=== PATIENT | male | born 1945 | race Caucasian/White ===

== ENCOUNTER 2021-09-24 17:44 | Inpatient (IN) ==
[2021-09-24] MEDS ORDERED: 0.9 % SODIUM CHLORIDE 1,000 ML IV ONE (18:45)
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
[2021-09-24 20:08] LABS: Basophils # (Auto) 0.02 K/mcL (0.00-0.30); Basophils % (Auto) 0.2 % (0.0-2.0); Eosinophils # (Auto) 0 K/mcL (0.00-0.70); Eosinophils % (Auto) 0 % (0.0-7.0); Hematocrit 53.8 % (40.1-51.0); Hemoglobin 18.4 g/dL (13.7-17.5); Lymphocytes # (Auto) 0.75 K/mcL (1.50-4.80); Lymphocytes % (Auto) 8.4 % (15.5-49.0); Mean Cell Volume 92.3 fL (80.0-100.0); Mean Corpuscular HGB Conc 34.2 g/dL (31.0-36.0); Mean Platelet Volume 9.5 fL (7.4-10.4); Monocytes # (Auto) 1.16 K/mcL (0.10-0.90); Monocytes % (Auto) 13.1 % (1.0-12.0); Neutrophils % (Auto) 78.3 % (38.0-78.0); Platelet Count 144 K/mcL (140-440); RBC 5.83 M/mcL (4.63-6.08); Red Cell Distribution Width 12.7 % (11.5-14.5); WBC 8.9 K/mcL (4.5-11.0)
[2021-09-24 20:16] LABS: ALT/SGPT 28 U/L (<40); AST/SGOT 100 U/L (<40); Albumin 4.2 gm/dL (3.2-5.2); Albumin/Globulin Ratio 1.4 (1.0-2.3); Alkaline Phosphatase 86 U/L (39-117); Bilirubin,Total 1.1 mg/dL (0.1-1.0); Blood Urea Nitrogen 19 mg/dL (8-23); Calcium 9.1 mg/dL (8.6-10.4); Carbon Dioxide 26 mmol/L (22-30); Chloride 96 mmol/L (96-108); Glomerular Filtration Rate 57; Glucose 99 mg/dL (70-105)
[2021-09-24 20:38] LABS: Appearance,Urine Clear (Clear); Bilirubin,Urine Negative (Negative); Color,Urine Dark yellow; Culture Indicated,Urine No; Ketones,Urine 15 mg/dL mg/dL (Negative); Leukocyte Esterase,Urine Negative /uL (Negative); Mucus,Urine MOD /hpf; Nitrate,Urine Negative (Negative); Specific Gravity,Urine >= 1.030 (1.000-1.035); Urine Blood Moderate ery/mcL (Negative); Urine Hyaline Cast 72 /lph (0-2); Urine RBC 2 /hpf (0-3); Urine Squamous Epithelial Cell 0 /hpf (0-4); Urine WBC 5 /hpf (0-4); Urobilinogen,Urine Normal
[2021-09-24] MEDS ORDERED: ONDANSETRON 4 MG/2 ML VIAL IV PRN (21:48)
[2021-09-24] MEDS ORDERED: ACETAMINOPHEN 325 MG TABLET PO PRN (21:48)
[2021-09-24] MEDS ORDERED: IBUPROFEN 600 MG TABLET PO PRN (21:48)
[2021-09-24] MEDS: 0.9 % SODIUM CHLORIDE 10 ML SYRINGE IV SCH (23:30)
[2021-09-25] MEDS: 0.9 % SODIUM CHLORIDE 10 ML SYRINGE IV SCH ×5 (05:24→20:15)
[2021-09-25 06:49] LABS: Basophils # (Auto) 0.05 K/mcL (0.00-0.30); Basophils % (Auto) 0.5 % (0.0-2.0); Eosinophils # (Auto) 0.08 K/mcL (0.00-0.70); Eosinophils % (Auto) 0.8 % (0.0-7.0); Hematocrit 59.7 % (40.1-51.0); Hemoglobin 19.2 g/dL (13.7-17.5); Lymphocytes # (Auto) 1.86 K/mcL (1.50-4.80); Mean Cell Volume 97.7 fL (80.0-100.0); Mean Corpuscular HGB Conc 32.2 g/dL (31.0-36.0); Mean Platelet Volume 9.7 fL (7.4-10.4); Monocytes # (Auto) 1.45 K/mcL (0.10-0.90); Monocytes % (Auto) 14.1 % (1.0-12.0); Neutrophils % (Auto) 66.6 % (38.0-78.0); Platelet Count 141 K/mcL (140-440); RBC 6.11 M/mcL (4.63-6.08); Red Cell Distribution Width 12.8 % (11.5-14.5); WBC 10.3 K/mcL (4.5-11.0)
[2021-09-25 07:22] LABS: Blood Urea Nitrogen 24 mg/dL (8-23); Calcium 8.5 mg/dL (8.6-10.4); Carbon Dioxide 22 mmol/L (22-30); Chloride 104 mmol/L (96-108); Glomerular Filtration Rate 64; Glucose 89 mg/dL (70-105)
--- NOTE | 2021-09-25 07:31 | EKG ---
[facility] Test Date: 2021-09-24 Pat Name: Sawyer Dutton Department: ED Room: Gender: Male Ginner Helper: latonya : 1945 Requested By: Ephraim Paez Order Number: [id number] Reading MD: Dane Mccoy M.D. Measurements Intervals Grandy Rate: 78 P: 46 IN: 184 QRS: -40 QRSD: 110 T: 45 QT: 370 QTc: 422 Interpretive Statements Sinus rhythm Left axis deviation No significant change compared to prior ECG. Electronically Signed On 09-25-2021 7:31:14 PST by Dane Mccoy M.D. /store/M0/[id number]
--- NOTE | 2021-09-25 07:38 | Internal Med History&Physical ---
HPI History of Present Illness Patient information: Note initiated : 09/25/21 at 7:32 am Service Date, if different from initiated Date: [] Patient: Sawyer Dutton 76 y/o M admitted on 09/24/21 for alter. mental/Fall. Chief Complaint: [] History of present illness: Mr. Dutton is a 76 year old M Who lives in [facility] and was brought in by neighbors after being found on the ground between bed and the wall. They usually check on him frequently because he seems to be in poor health. So this is the second day in a row the patient has fallen and seems a little confused. And the neighbors is the fourth time in a month that this is happened. Patient says that he is fallen several times the past month because he just been weak and tripped. But he says this last time was different where he says he does not remember falling and just remembers waking up, this happened in the middle night and he says he may have been getting up to go the bathroom. Work-up in the ER was unremarkable. Telemetry unremarkable. Patient has nobody bring him home and patient does not appear to be safe at home unable to care for himself. Likely will need placement. Chest x-ray was read as unremarkable. Patient does have a new cough which he states had for 3 to 4 weeks and is nonproductive. No shortness of breath. No chest pain nausea vomiting diarrhea or other pains or complaints, no myalgias. Review of Systems: Pertinent positives as above. Denies headache/fever/chills/nausea/vomiting/chest or abdominal pain/dyspnea/diarrhea. Remaining 10 point review of system reviewed negative. PFSH PFSH All Active Problems (Updated 09/24/21 @ 22:04 by Ephraim Paez DO) Esophageal obstruction due to food impaction (Acute) Syncopal episodes (Acute) Difficulty swallowing (Acute) Benign paroxysmal positional vertigo (Acute) BPH associated with nocturia (Acute) Annual physical exam (Acute) Medicare annual wellness visit, subsequent (Acute) Bee sting reaction (Acute) Cellulitis (Acute) Prediabetes (Acute) Ankle sprain and strain (Acute) Hypokalemia (Chronic) Vitamin D deficiency, unspecified (Chronic) Chronic kidney disease, stage 3 (moderate) (Chronic) Obstructive sleep apnea (Chronic) Hypertension, essential (Chronic) Hyperlipidemia (Chronic) Benign localized prostatic hyperplasia without lower urinary tract symptoms (LUTS) (Chronic) Medical History Ankle sprain and strain Annual physical exam Benign localized prostatic hyperplasia without lower urinary tract symptoms (LUTS) BPH associated with nocturia Chronic kidney disease, stage 3 (moderate) Depressive disorder Hyperlipidemia Hypertension, essential Hypokalemia Medicare annual wellness visit, subsequent Obstructive sleep apnea Sebaceous cyst (01/14/12) Mid Back Type 2 diabetes mellitus without complication Vitamin D deficiency, unspecified Surgical History History of blepharoplasty Bilateral History of colonoscopy (12/20/09) History of eye surgery R cornea/scar Status post cataract extraction and insertion of intraocular lens Bilateral Subcutaneous mass -Excision of low back sebaceous cyst with Dr Plascencia at [facility] Family History Father , at 71 Alcohol abuse Chronic obstructive pulmonary disease Congestive heart failure Mother , at 72 Malignant neoplasm Not sure of type Unknown Cerebrovascular accident Social History marital status: education level: high school occupational status: retired occupation: [employer] other: 2 Children, 2 Grandchildren alcohol intake frequency: holiday/special occasion only MEDS/ALLERGIES Home Medications and Allergies Home Medications Medication Instructions Recorded Confirmed Type meclizine 25 mg tablet 25 mg PO TID PRN #10 tab 08/27/21 09/18/21 Rx Allergies Allergy/AdvReac Type Severity Reaction Status Date / Time No Known Drug Allergies Allergy Verified 09/24/21 17:50 EXAM Constitutional Vitals: Temp Pulse Resp BP Pulse Ox 98.4 F 71 18 126/75 89 L 09/25/21 04:01 09/25/21 04:01 09/25/21 04:01 09/25/21 04:01 09/25/21 04:01 Exam: General: Alert, Awake, No acute Distress Eyes/N/T: EOMI, PERRL, dry MM Head/Neck: neck supple, normocephalic atraumatic CV: RRR, No murmurs, normal s1/s2 Pulm: mild rhonchi on right, mild wheezing on left Abd: soft, nontender, +BS x4 Ext: no clubbing/cyanosis/edema Neuro: Alert, no focal deficits, moves all extremities, CN 2-12 grossly intact, symmetrical strength b/l upper/lower, sensations intact b/l upper/lower Skin: warm/dry DATA Data Completed and Pending Labs: Labs from last 24 hours 09/25/21 09/25/21 09/24/21 05:49 05:49 19:49 WBC 10.3 RBC 6.11 H Hgb 19.2 H Hct 59.7 H MCV 97.7 MCH 31.4 MCHC 32.2 RDW 12.8 Plt Count 141 MPV 9.7 Neut % (Auto) 66.6 Lymph % (Auto) 18.0 Morton % (Auto) 14.1 H Eos % (Auto) 0.8 Baso % (Auto) 0.5 Lymph # (Auto) 1.86 Morton # (Auto) 1.45 H Eos # (Auto) 0.08 Baso # (Auto) 0.05 Absolute Neutrophils 6.87 Sodium 141 Potassium 4.2 Chloride 104 Carbon Dioxide 22 Anion Gap 15.0 BUN 24 H Creatinine 1.1 GFR Calculation 64 Glucose 89 Calcium 8.5 L Total Bilirubin AST ALT Alkaline Phosphatase Troponin T Total Protein Albumin Globulin Albumin/Globulin Ratio Urine Color Dark yellow Urine Appearance Clear Urine pH 5.0 Ur Specific [place] >= 1.030 Urine Protein 100 mg/dl A Urine Glucose (UA) 100 mg/dl A Urine Ketones 15 mg/dl A Urine Occult Blood Moderate A Urine Nitrate Negative Urine Bilirubin Negative Urine Urobilinogen Normal Ur Leukocyte Esterase Negative Urine RBC 2 Urine WBC 5 H Ur Squamous Epith Cells 0 Urine Bacteria None Hyaline Casts 72 H Urine Mucus Mod A Ur Culture Indicated? No 09/24/21 09/24/21 09/24/21 19:13 19:13 19:13 WBC 8.9 RBC 5.83 Hgb 18.4 H Hct 53.8 H MCV 92.3 MCH 31.6 MCHC 34.2 RDW 12.7 Plt Count 144 MPV 9.5 Neut % (Auto) 78.3 H Lymph % (Auto) 8.4 L Morton % (Auto) 13.1 H Eos % (Auto) 0 Baso % (Auto) 0.2 Lymph # (Auto) 0.75 L Morton # (Auto) 1.16 H Eos # (Auto) 0 Baso # (Auto) 0.02 Absolute Neutrophils 6.95 Sodium 136 Potassium 3.9 Chloride 96 Carbon Dioxide 26 Anion Gap 14.0 BUN 19 Creatinine 1.2 GFR Calculation 57 Glucose 99 Calcium 9.1 Total Bilirubin 1.1 H AST 100 H ALT 28 Alkaline Phosphatase 86 Troponin T 0.02 Total Protein 7.2 Albumin 4.2 Globulin 3.0 Albumin/Globulin Ratio 1.4 Urine Color Urine Appearance Urine pH Ur Specific [place] Urine Protein Urine Glucose (UA) Urine Ketones Urine Occult Blood Urine Nitrate Urine Bilirubin Urine Urobilinogen Ur Leukocyte Esterase Urine RBC Urine WBC Ur Squamous Epith Cells Urine Bacteria Hyaline Casts Urine Mucus Ur Culture Indicated? A/P Narrative A/P Narrative: A: *Generalized weakness/deconditioning/falling: *Syncope: likely orthostatic vs vasovagal. happened in middle of night, possibly while getting up to go to the bathroom *Volume depletion: *URI: *Hypoxia while sleeping P: -IVF -pt/ot -CM for placement -check orthostatic vs -check pct,crp, rvp -tele monitoring -Referral to pulmonology for sleep study -ppx: lovenox full code Time Spent With Patient Time: Total time spent is greater than 50% in coordination of care (as documented) at patient's floor/unit and/or counseling patient: QUALITY VTE Deep Vein Thrombosis/Pulmonary Embolism Present on Admission: No
[2021-09-25] MEDS: 0.9 % SODIUM CHLORIDE 1,000 ML IV SCH ×3 (07:39→21:54)
[2021-09-25 08:10] LABS: Phosphorous 3.5 mg/dL (2.5-4.5); Uric Acid 10.1 mg/dL (2.5-8.0)
--- NOTE | 2021-09-25 08:11 | Cat Scan Report ---
History: Fell, head injury, altered mental status TECHNIQUE: The brain was imaged without contrast in axial plane at 2.5 mm intervals. The radiation exposure was limited using dose reduction technology. FINDINGS: The bone windows show no skull fracture. There is no intracranial hemorrhage, cerebral edema or mass effect. Age-related degenerative changes are present. There is mild generalized cerebral atrophy. Patchy areas of decreased attenuation are seen in the centrum semiovale in the frontal and parietal lobes. There is no abnormal extra-axial fluid collection. The ventricles are normal in size. No abnormalities seen within the orbits or visualized sinuses. IMPRESSION: Age-related degenerative changes No evidence of acute head injury Interpreted and Authenticated by: Ricci Mccoy 09/25/21
--- NOTE | 2021-09-25 08:15 | XRay Report ---
HISTORY: Fell, altered mental status FINDINGS: Portable semierect AP image was obtained. There is a small streaky opacity adjacent to the cardiac apex and above the left diaphragm. This is a chronic finding which could be scar. No acute infiltrate or mass are present. There is no pneumothorax or pleural effusion. The heart size is normal. No congestive heart failure is present. The right lower hilum appears enlarged. This is probably a vessel, but there are could be an underlying enlarged lymph node. IMPRESSION: No acute chest injury Interpreted and Authenticated by: Ricci Mccoy 09/25/21
[2021-09-25] MEDS ORDERED: ONDANSETRON 4 MG/2 ML VIAL IV PRN (08:48)
[2021-09-25] MEDS ORDERED: POTASSIUM CHLORIDE 20 MEQ TABLET PO PRN ×2 (08:48)
[2021-09-25] MEDS ORDERED: POLYETHYLENE GLYCOL 3350 17 GM PACKET PO PRN (08:48)
[2021-09-25] MEDS ORDERED: IPRATROPIUM/ALBUTEROL 3 ML AMPUL.NEB NEB PRN (08:48)
[2021-09-25] MEDS ORDERED: SENNOSIDES 1 TABLET PO PRN (08:48)
[2021-09-25] MEDS ORDERED: MAGNESIUM SULFATE 2 GM/50 ML BAG IV PRN (08:48)
[2021-09-25] MEDS ORDERED: POTASSIUM CHLORIDE 40 MEQ in DEXTROSE 5% IN WATER 500 ML IV PRN (08:48)
[2021-09-25] MEDS ORDERED: IPRATROPIUM/ALBUTEROL 3 ML AMPUL.NEB NEB ONE (08:49)
[2021-09-25] MEDS ORDERED: ENOXAPARIN 40 MG/0.4 ML SYRINGE SQ SCH (09:00)
[2021-09-25] MEDS ORDERED: IOPAMIDOL 100 ML BOTTLE IV ONE (10:38)
[2021-09-25] MEDS ORDERED: ENOXAPARIN 60 MG/0.6 ML SYRINGE SQ ONE (10:54)
--- NOTE | 2021-09-25 10:59 | Cat Scan Report ---
History: Hypoxia TECHNIQUE: Following injection of intravenous nonionic contrast, the chest was scanned during the pulmonary arterial phase. Sagittal, coronal and axial MIPS images were created. The radiation exposure was limited using dose reduction technology. FINDINGS: In the periphery of the posterior basal segment right lower lobe there are two small nonocclusive clots in peripheral third order arteries. The remainder the pulmonary arteries in both lungs are clear. There is no central pulmonary embolus. There are bands of discoid atelectasis in both lower lobes. There is no evidence of pneumonia or lung mass. Solitary bulla is present in the right upper lobe. There is no other evidence of COPD. No pleural effusion is present. There is no adenopathy. In the right lower hilum, the right lower lobe pulmonary artery is relatively prominent, which correlates with the findings on the preceding chest x-ray. There is no clot in this region and no hilar adenopathy. The heart is normal in size and contour. There is moderate amount of calcified plaque in the left anterior descending coronary with milder involvement in the circumflex and right coronary. Bone windows show no fracture. There is arthritis throughout the cervical mid and upper thoracic spine. Impression: Two tiny peripheral emboli in the posterior basal segment of the right lower lobe with associated discoid atelectasis Dr. Alvarado was called with the report Interpreted and Authenticated by: Ricci Mccoy 09/25/21
[2021-09-25] MEDS ORDERED: AZITHROMYCIN 500 MG in DEXTROSE 5% IN WATER 250 ML IV ONE (11:00)
[2021-09-25 12:33] LABS: Band Neutrophils % 1 % (0-10); Eosinophils % (Manual) 2 % (0-7); Lymphocytes % 20 % (15-49); Monocytes % (Manual) 11 % (1-12); Platelet Estimate NORMAL (Normal); RBC Morphology NORMAL (Normal); Reactive Lymphocytes 4 % (0-2); Segmented Neutrophils % 62 % (38-78)
[2021-09-25] MEDS: cefTRIAXone 2 GM in DEXTROSE 5% IN WATER 50 ML IV SCH (13:31)
[2021-09-25] MEDS ORDERED: ENOXAPARIN 100 MG/ML SYRINGE SQ SCH (21:00)
[2021-09-26] MEDS: 0.9 % SODIUM CHLORIDE 10 ML SYRINGE IV SCH ×3 (05:42→20:00)
--- NOTE | 2021-09-26 07:17 | Internal Med Progress Note ---
SUBJECTIVE Subjective Patient information: Note initiated : 09/26/21 at 7:13 am Service Date, if different from initiated Date: [] Patient: Sawyer Dutton 76 y/o M admitted on 09/24/21 for alter. mental/Fall. Chief Complaint: [] Interval history: History of present illness: Mr. Dutton is a 76 year old M Who lives in [facility] and was brought in by neighbors after being found on the ground between bed and the wall. They usually check on him frequently because he seems to be in poor health. So this is the second day in a row the patient has fallen and seems a little confused. And the neighbors is the fourth time in a month that this is happened. Patient says that he is fallen several times the past month because he just been weak and tripped. But he says this last time was different where he says he does not remember falling and just remembers waking up, this happened in the middle night and he says he may have been getti ng up to go the bathroom. Work-up in the ER was unremarkable. Telemetry unremarkable. Patient has nobody bring him home and patient does not appear to be safe at home unable to care for himself. Likely will need placement. Chest x-ray was read as unremarkable. Patient does have a new cough which he states had for 3 to 4 weeks and is nonproductive. No shortness of breath. No chest pain nausea vomiting diarrhea or other pains or complaints, no myalgias. RVP withRSV B (+) 1/4 Patient states he feels like he is getting better. Has a cough that bothers him significantly. States is mostly dry. Does have a lot of sinus congestion. Afebrile. Review of Systems: denies headache/fever/chills/nausea/vomiting/chest or abdominal pain/diarrhea. Otherwise see above. Constitutional Vitals: Vital Signs Temp Pulse Resp BP Pulse Ox 97.8 F 77 24 H 132/75 97 09/26/21 03:19 09/25/21 15:34 09/26/21 03:19 09/26/21 03:19 09/26/21 03:19 Period Temp Pulse Resp BP Sys/Santos Pulse Ox Last 24 Hr 97 F-98.2 F 64-77 16-24 98-147/64-83 86-97 Intake and Output 09/25/21 09/26/21 09/26/21 21:59 05:59 13:59 Intake Total 1780 Output Total 250 200 Balance 1530 -200 Weight 106.912 kg Intake & Output: Intake & Output 09/25/21 09/26/21 09/26/21 21:59 05:59 13:59 Intake Total 1780 Output Total 250 200 Balance 1530 -200 Weight 106.912 kg Intake: IV 1300 Sodium Chloride 0.9% 1,000 ml @ 1000 125 mls/hr IV .Q8H [facility] Rx#: [id number] Zithromax 500 mg In Dextrose 5% 250 in Water 250 ml @ 250 mls/hr IV ONCE ONE Rx#:[id number] Rocephin 2 gm In Dextrose 5% in 50 Water 50 ml @ 100 mls/hr IV DAILY [facility] Rx#:[id number] Oral 480 Output: Void Amount 250 200 Other: Urine Appearance Clear Clear Urine Color Dark Yellow Dark Yellow Urine Odor Normal Stool Size Moderate Stool Color Brown # Bowel Movements 1 Exam: General: Alert, Awake, No acute Distress Eyes/N/T: EOMI, Head/Neck: neck supple, CV: RRR, No murmurs, 2 Pulm: mild rhonchi on right, mild wheezing on left Abd: soft, nontender, +BS x4 Ext: no clubbing/cyanosis/edema Neuro: Alert, no focal deficits, moves all extremities, Skin: warm/dry OBJ DATA Labs CBC & Chem 7: 09/26/21 06:04 09/26/21 06:04 Labs: Abnormal Lab Results 09/25/21 09/25/21 09/25/21 05:49 05:49 05:49 RBC Hgb Hct Neut % (Auto) Lymph % (Auto) [place] % (Auto) Lymph # (Auto) [place] # (Auto) Reactive Lymphocytes 4 H BUN Uric Acid Calcium Total Bilirubin AST C-Reactive Protein 5.50 H Procalcitonin 1.26 H Urine Protein Urine Glucose (UA) Urine Ketones Urine Occult Blood Urine WBC Hyaline Casts Urine Mucus 09/25/21 09/25/21 09/25/21 05:49 05:49 05:49 RBC 6.11 H Hgb 19.2 H Hct 59.7 H Neut % (Auto) Lymph % (Auto) [place] % (Auto) 14.1 H Lymph # (Auto) [place] # (Auto) 1.45 H Reactive Lymphocytes BUN 24 H Uric Acid 10.1 H Calcium 8.5 L Total Bilirubin AST C-Reactive Protein Procalcitonin Urine Protein Urine Glucose (UA) Urine Ketones Urine Occult Blood Urine WBC Hyaline Casts Urine Mucus 09/24/21 09/24/21 09/24/21 19:49 19:13 19:13 RBC Hgb 18.4 H Hct 53.8 H Neut % (Auto) 78.3 H Lymph % (Auto) 8.4 L [place] % (Auto) 13.1 H Lymph # (Auto) 0.75 L [place] # (Auto) 1.16 H Reactive Lymphocytes BUN Uric Acid Calcium Total Bilirubin 1.1 H AST 100 H C-Reactive Protein Procalcitonin Urine Protein 100 mg/dl A Urine Glucose (UA) 100 mg/dl A Urine Ketones 15 mg/dl A Urine Occult Blood Moderate A Urine WBC 5 H Hyaline Casts 72 H Urine Mucus Mod A Meds: Medications Acetaminophen (Acetaminophen 325 Mg Tablet) 650 mg PO Q6HP PRN; Protocol PRN Reason: Per Pain Protocol/Fever > 101 Albuterol/Ipratropium (Ipratropium/Albuterol 3 Ml Ampul.Neb) 3 ml NEB Q4HP PRN PRN Reason: Shortness Of Breath Enoxaparin Sodium (Enoxaparin 100 Mg/Ml Syringe) 100 mg SQ BID [facility] Last Admin: 09/25/21 20:15 Dose: 100 mg Documented by: Potassium Chloride 40 meq/ (Dextrose) 520 mls @ 130 mls/hr IV UD PRN PRN Reason: Potassium < 3 Magnesium Sulfate (Magnesium Sulfate) 2 gm in 50 mls @ 50 mls/hr IV UD PRN PRN Reason: Magnesium </= 1.6 Ceftriaxone Sodium 2 gm/ (Dextrose) 50 mls @ 100 mls/hr IV DAILY [facility]; Protocol Last Infusion: 09/25/21 14:09 Dose: Infused Documented by: Azithromycin 250 mg/ Dextrose 250 mls @ 250 mls/hr IV DAILY@1100 [facility]; Protocol Stop: 09/29/21 11:59 Ibuprofen (Ibuprofen 600 Mg Tablet) 600 mg PO QIDP PRN; Protocol PRN Reason: Per Pain Protocol/Fever > 101 Ondansetron HCl (Ondansetron 4 Mg/2 Ml Vial) 4 mg IV Q6HP PRN PRN Reason: Nausea And Vomiting Ondansetron HCl (Ondansetron 4 Mg/2 Ml Vial) 4 mg IV Q4HP PRN PRN Reason: Nausea And Vomiting Polyethylene Glycol (Polyethylene Glycol 3350 17 Gm Packet) 17 gm PO DAILYP PRN PRN Reason: Constipation Potassium Chloride (Potassium Chloride 20 Meq Tablet) 40 meq PO UD PRN PRN Reason: Potssium is 3-3.5 Potassium Chloride (Potassium Chloride 20 Meq Tablet) 40 meq PO UD PRN PRN Reason: Potassium < 3 Senna (Sennosides 1 Tablet) 2 tab PO DAILYP PRN PRN Reason: Constipation Sodium Chloride (0.9 % Sodium Chloride 10 Ml Syringe) 10 ml IV Q8 [facility] Last Admin: 09/26/21 05:42 Dose: Not Given Documented by: A/P Narrative A/P Narrative: A: *small RLL PE's: *RSV B Infection URI: *Acute hypoxic respiratory failure: 2/2 above -on 2-3L NC *Generalized weakness/deconditioning/falling: *Syncope: likely orthostatic vs vasovagal. happened in middle of night, possibly while getting up to go to the bathroom *Volume depletion: *URI: *Hypoxia while sleeping P: -lovenox bid to eliquis -IVF finish -d/c abx if no bacterial infection found, f/u pct -pt/ot -CM for placement -check orthostatic vs -tele monitoring -ambulation -ppx: eliquis full code Time Spent With Patient Time: Total time spent is greater than 50% in coordination of care (as documented) at patient's floor/unit and/or counseling patient: QUALITY VTE Deep Vein Thrombosis/Pulmonary Embolism Present on Admission: No
[2021-09-26] MEDS ORDERED: MECLIZINE 25 MG TABLET PO PRN (07:33)
[2021-09-26 07:48] LABS: Hematocrit 51.6 % (40.1-51.0); Hemoglobin 16.9 g/dL (13.7-17.5); Mean Cell Volume 95.6 fL (80.0-100.0); Mean Corpuscular HGB Conc 32.8 g/dL (31.0-36.0); Mean Platelet Volume 9.7 fL (7.4-10.4); Platelet Count 131 K/mcL (140-440); Red Cell Distribution Width 12.8 % (11.5-14.5); WBC 6.2 K/mcL (4.5-11.0)
[2021-09-26 08:19] LABS: ALT/SGPT 29 U/L (<40); AST/SGOT 81 U/L (<40); Albumin 3.7 gm/dL (3.2-5.2); Albumin/Globulin Ratio 1.4 (1.0-2.3); Alkaline Phosphatase 70 U/L (39-117); Bilirubin,Direct < 0.2 mg/dL (0-0.3); Bilirubin,Total 0.4 mg/dL (0.1-1.0); Blood Urea Nitrogen 23 mg/dL (8-23); Calcium 8.4 mg/dL (8.6-10.4); Carbon Dioxide 22 mmol/L (22-30); Chloride 104 mmol/L (96-108); Globulin 2.6 gm/dL (2.2-3.7); Glomerular Filtration Rate 64; Glucose 77 mg/dL (70-105); Lactate Dehydrogenase 316 U/L (135-225); Phosphorous 2.7 mg/dL (2.5-4.5); Triglycerides 165 mg/dL (<150); Uric Acid 8.7 mg/dL (2.5-8.0)
[2021-09-26] MEDS ORDERED: BENZONATATE 100 MG CAPSULE PO PRN (08:23)
[2021-09-26] MEDS: APIXABAN 5 MG TABLET PO SCH ×2 (08:36→19:39)
[2021-09-26] MEDS: guaiFENesin/CODEINE 10 ML UDC PO PRN ×2 (08:36→20:39)
[2021-09-26] MEDS: cefTRIAXone 2 GM in DEXTROSE 5% IN WATER 50 ML IV SCH (08:36)
[2021-09-26 09:12] LABS: Basophils % (Manual) 1 % (0-2); Eosinophils % (Manual) 2 % (0-7); Lymphocytes % 23 % (15-49); Monocytes % (Manual) 11 % (1-12); Platelet Estimate DECREASED (Normal); RBC Morphology NORMAL (Normal); Reactive Lymphocytes 2 % (0-2); Segmented Neutrophils % 61 % (38-78)
[2021-09-26] MEDS: AZITHROMYCIN 250 MG in DEXTROSE 5% IN WATER 250 ML IV SCH (10:42)
--- NOTE | 2021-09-26 13:38 | XRay Report ---
HISTORY: Right lower lobe pulmonary emboli, cough FINDINGS: There is a vague streakiness in the lung parenchyma adjacent to both diaphragms. This corresponds with bands of scar and atelectasis seen on the recent chest CT performed on 09/25/21. The right lower hilum still appears enlarged. This corresponds with a relatively large right lower lobe pulmonary artery. The descending aorta is tortuous. The mid and upper lung kenney are clear. No acute infiltrate has developed. There is no congestive heart failure or pleural effusion. The heart size is normal. IMPRESSION: Stable scar/atelectasis adjacent to both diaphragms Interpreted and Authenticated by: Ricci Mccoy 09/26/21
[2021-09-27] MEDS: 0.9 % SODIUM CHLORIDE 10 ML SYRINGE IV SCH ×2 (05:23→14:00)
--- NOTE | 2021-09-27 07:48 | Internal Med Progress Note ---
SUBJECTIVE Subjective Patient information: Note initiated : 09/27/21 at 7:44 am Service Date, if different from initiated Date: [] Patient: Sawyer Dutton 76 y/o M admitted on 09/24/21 for alter. mental/Fall. Chief Complaint: [] Interval history: History of present illness: Mr. Dutton is a 76 year old M Who lives in [facility] and was brought in by neighbors after being found on the ground between bed and the wall. They usually check on him frequently because he seems to be in poor health. So this is the second day in a row the patient has fallen and seems a little confused. And the neighbors is the fourth time in a month that this is happened. Patient says that he is fallen several times the past month because he just been weak and tripped. But he says this last time was different where he says he does not remember falling and just remembers waking up, this happened in the middle night and he says he may have been getti ng up to go the bathroom. Work-up in the ER was unremarkable. Telemetry unremarkable. Patient has nobody bring him home and patient does not appear to be safe at home unable to care for himself. Likely will need placement. Chest x-ray was read as unremarkable. Patient does have a new cough which he states had for 3 to 4 weeks and is nonproductive. No shortness of breath. No chest pain nausea vomiting diarrhea or other pains or complaints, no myalgias. RVP withRSV B (+) 1/4 Patient states he feels like he is getting better. Has a cough that bothers him significantly. States is mostly dry. Does have a lot of sinus congestion. Afebrile. 1/5 Patient feeling better. Wanting to go home. No new complaints. Review of Systems: denies headache/fever/chills/nausea/vomiting/chest or abdominal pain/diarrhea. Otherwise see above. Constitutional Vitals: Vital Signs Temp Pulse Resp BP Pulse Ox 97.4 F 63 16 139/74 90 09/27/21 02:11 09/27/21 02:11 09/27/21 02:11 09/27/21 02:11 09/27/21 02:11 Period Temp Pulse Resp BP Sys/Santos Pulse Ox Last 24 Hr 97.2 F-98.6 F 60-67 16-22 111-151/72-88 90-93 Intake and Output 09/26/21 09/27/21 09/27/21 21:59 05:59 13:59 Intake Total 750 350 Output Total 600 150 Balance 150 200 Weight 106.912 kg Intake & Output: Intake & Output 09/26/21 09/27/21 09/27/21 21:59 05:59 13:59 Intake Total 750 350 Output Total 600 150 Balance 150 200 Weight 106.912 kg Intake: Oral 750 350 Output: Void Amount 600 150 Other: Meal Dinner Percent of Meal Consumed 75% Feeding Ability Assist with Tray Set Up Urine Appearance Clear Urine Color Bright Yellow Urine Odor Strong # Voids 1 Exam: General: Alert, Awake, No acute Distress Eyes/N/T: EOMI, Head/Neck: neck supple, CV: RRR, No murmurs, 2 Pulm: milding wheezing today, minimal rhonchi Abd: soft, nontender, +BS x4 Ext: no clubbing/cyanosis/edema Neuro: Alert, no focal deficits, moves all extremities, Skin: warm/dry OBJ DATA Labs CBC & Chem 7: 09/26/21 06:04 09/27/21 05:20 Labs: Abnormal Lab Results 09/26/21 09/26/21 09/26/21 06:04 06:04 06:04 RBC Hgb Hct Plt Count Neut % (Auto) Lymph % (Auto) [place] % (Auto) Lymph # (Auto) [place] # (Auto) Reactive Lymphocytes Platelet Estimate BUN Uric Acid 8.7 H Calcium 8.4 L Total Bilirubin AST 81 H Lactate Dehydrogenase 316 H C-Reactive Protein 3.90 H Triglycerides 165 H Procalcitonin 0.90 H Urine Protein Urine Glucose (UA) Urine Ketones Urine Occult Blood Urine WBC Hyaline Casts Urine Mucus 09/26/21 09/25/21 09/25/21 06:04 05:49 05:49 RBC Hgb Hct 51.6 H Plt Count 131 L Neut % (Auto) Lymph % (Auto) [place] % (Auto) Lymph # (Auto) [place] # (Auto) Reactive Lymphocytes 4 H Platelet Estimate Decreased A BUN Uric Acid Calcium Total Bilirubin AST Lactate Dehydrogenase C-Reactive Protein Triglycerides Procalcitonin 1.26 H Urine Protein Urine Glucose (UA) Urine Ketones Urine Occult Blood Urine WBC Hyaline Casts Urine Mucus 09/25/21 09/25/21 09/25/21 05:49 05:49 05:49 RBC Hgb Hct Plt Count Neut % (Auto) Lymph % (Auto) [place] % (Auto) Lymph # (Auto) [place] # (Auto) Reactive Lymphocytes Platelet Estimate BUN 24 H Uric Acid 10.1 H Calcium 8.5 L Total Bilirubin AST Lactate Dehydrogenase C-Reactive Protein 5.50 H Triglycerides Procalcitonin Urine Protein Urine Glucose (UA) Urine Ketones Urine Occult Blood Urine WBC Hyaline Casts Urine Mucus 09/25/21 09/24/21 09/24/21 05:49 19:49 19:13 RBC 6.11 H Hgb 19.2 H Hct 59.7 H Plt Count Neut % (Auto) Lymph % (Auto) [place] % (Auto) 14.1 H Lymph # (Auto) [place] # (Auto) 1.45 H Reactive Lymphocytes Platelet Estimate BUN Uric Acid Calcium Total Bilirubin 1.1 H AST 100 H Lactate Dehydrogenase C-Reactive Protein Triglycerides Procalcitonin Urine Protein 100 mg/dl A Urine Glucose (UA) 100 mg/dl A Urine Ketones 15 mg/dl A Urine Occult Blood Moderate A Urine WBC 5 H Hyaline Casts 72 H Urine Mucus Mod A 09/24/21 19:13 RBC Hgb 18.4 H Hct 53.8 H Plt Count Neut % (Auto) 78.3 H Lymph % (Auto) 8.4 L [place] % (Auto) 13.1 H Lymph # (Auto) 0.75 L [place] # (Auto) 1.16 H Reactive Lymphocytes Platelet Estimate BUN Uric Acid Calcium Total Bilirubin AST Lactate Dehydrogenase C-Reactive Protein Triglycerides Procalcitonin Urine Protein Urine Glucose (UA) Urine Ketones Urine Occult Blood Urine WBC Hyaline Casts Urine Mucus Meds: Medications Acetaminophen (Acetaminophen 325 Mg Tablet) 650 mg PO Q6HP PRN; Protocol PRN Reason: Per Pain Protocol/Fever > 101 Albuterol/Ipratropium (Ipratropium/Albuterol 3 Ml Ampul.Neb) 3 ml NEB Q4HP PRN PRN Reason: Shortness Of Breath Apixaban (Apixaban 5 Mg Tablet) 10 mg PO BID [facility] Last Admin: 09/26/21 19:39 Dose: 10 mg Documented by: Benzonatate (Benzonatate 100 Mg Capsule) 200 mg PO TIDP PRN PRN Reason: Cough Last Admin: 09/26/21 19:39 Dose: 200 mg Documented by: Guaifenesin/Codeine Phosphate (Guaifenesin/Codeine 10 Ml Udc) 10 ml PO Q4HP PRN PRN Reason: Cough Last Admin: 09/26/21 20:39 Dose: 10 ml Documented by: Potassium Chloride 40 meq/ (Dextrose) 520 mls @ 130 mls/hr IV UD PRN PRN Reason: Potassium < 3 Magnesium Sulfate (Magnesium Sulfate) 2 gm in 50 mls @ 50 mls/hr IV UD PRN PRN Reason: Magnesium </= 1.6 Ceftriaxone Sodium 2 gm/ (Dextrose) 50 mls @ 100 mls/hr IV DAILY [facility]; Protocol Last Infusion: 09/26/21 09:50 Dose: Infused Documented by: Azithromycin 250 mg/ Dextrose 250 mls @ 250 mls/hr IV DAILY@1100 [facility]; Protocol Stop: 09/29/21 11:59 Last Infusion: 09/26/21 11:45 Dose: Infused Documented by: Meclizine HCl (Meclizine 25 Mg Tablet) 25 mg PO TIDP PRN PRN Reason: dizziness Ondansetron HCl (Ondansetron 4 Mg/2 Ml Vial) 4 mg IV Q4HP PRN PRN Reason: Nausea And Vomiting Polyethylene Glycol (Polyethylene Glycol 3350 17 Gm Packet) 17 gm PO DAILYP PRN PRN Reason: Constipation Potassium Chloride (Potassium Chloride 20 Meq Tablet) 40 meq PO UD PRN PRN Reason: Potssium is 3-3.5 Potassium Chloride (Potassium Chloride 20 Meq Tablet) 40 meq PO UD PRN PRN Reason: Potassium < 3 Senna (Sennosides 1 Tablet) 2 tab PO DAILYP PRN PRN Reason: Constipation Sodium Chloride (0.9 % Sodium Chloride 10 Ml Syringe) 10 ml IV Q8 [facility] Last Admin: 09/27/21 05:23 Dose: 10 ml Documented by: A/P Narrative A/P Narrative: A: *small RLL PE's: *RSV B Infection URI: *Acute hypoxic respiratory failure: 2/2 above -on 2L NC *likely underlying COPD given cxr findings and h/o smoking with second hand smoke *Generalized weakness/deconditioning/falling: *Syncope: likely orthostatic vs vasovagal. happened in middle of night, possibly while getting up to go to the bathroom -none since admit. *Volume depletion: improved P: -eliquis -pt/ot -home O2 eval -CM for placement -tele monitoring -ambulation -ppx: eliquis full code Time Spent With Patient Time: Total time spent is greater than 50% in coordination of care (as documented) at patient's floor/unit and/or counseling patient: QUALITY VTE Deep Vein Thrombosis/Pulmonary Embolism Present on Admission: No
[2021-09-27 08:24] LABS: Blood Urea Nitrogen 18 mg/dL (8-23); Calcium 8.5 mg/dL (8.6-10.4); Carbon Dioxide 24 mmol/L (22-30); Chloride 108 mmol/L (96-108); Glomerular Filtration Rate 72; Glucose 88 mg/dL (70-105)
[2021-09-27] MEDS ORDERED: IPRATROPIUM/ALBUTEROL 3 ML AMPUL.NEB NEB ONE (08:30)
--- NOTE | 2021-09-27 09:12 | Discharge Summary ---
Discharge Provider Provider Patient information: Note initiated : 09/27/21 at 9:11 am Service Date, if different from initiated Date: [] Patient: Sawyer Dutton 76 y/o M admitted on 09/24/21 for alter. mental/Fall. Chief Complaint: [] Date of admission: 09/24/21 23:08 Discharge date: 09/27/21 Primary care physician: Dedrick Paulson MD Consults: 09/25/21 07:06 Consult to Physician [CONS] Routine Comment: Consulting Provider: Martin Alvarado Reason For Exam: Physician to Consult Discharge Meds Discharge Medications Home Medications meclizine 25 mg tablet 25 mg PO TID PRN #10 tab 08/27/21 [Rx Confirmed 09/25/21 Last Taken Unknown] apixaban 5 mg tablet (Eliquis) 10 mg PO BID #90 tab 09/27/21 [Rx Last Taken Unknown] cefdinir 300 mg capsule 300 mg PO BID #5 cap 09/27/21 [Rx Last Taken Unknown] COURSE Hospital Course Hospital course: Interval history: History of present illness: Mr. Dutton is a 76 year old M Who lives in [facility] and was brought in by neighbors after being found on the ground between bed and the wall. They usually check on him frequently because he seems to be in poor health. So this is the second day in a row the patient has fallen and seems a little confused. And the neighbors is the fourth time in a month that this is happened. Patient says that he is fallen several times the past month because he just been weak and tripped. But he says this last time was different where he says he does not remember falling and just remembers waking up, this happened in the middle night and he says he may have been getting up to go the bathroom. Work-up in the ER was unremarkable. Telemetry unremarkable. Patient has nobody bring him home and patient does not appear to be safe at home unable to care for himself. Likely will need placement. Chest x-ray was read as unremarkable. Patient does have a new cough which he states had for 3 to 4 weeks and is nonproductive. No shortness of breath. No chest pain nausea vomiting diarrhea or other pains or complaints, no myalgias. RVP withRSV B (+) 1/ Patient states he feels like he is getting better. Has a cough that bothers him significantly. States is mostly dry. Does have a lot of sinus congestion. Afebrile. 1/5 Patient feeling better. Wanting to go home. No new complaints. A: *small RLL PE's: *RSV B Infection URI: *Acute hypoxic respiratory failure: 2/2 above -on 2L NC *likely underlying COPD given cxr findings and h/o smoking with second hand smo ke *Generalized weakness/deconditioning/falling: *Syncope: likely orthostatic vs vasovagal. happened in middle of night, possibly while getting up to go to the bathroom -none since admit. *Volume depletion: improved P: -eliquis -home O2 eval Discharge diagnosis: PE RSV infection acute hypoxic respite failure underlying COPD likely Time Spent with Patient Time attestation: Total time spent providing and/or coordinating discharge services: Time spent: Greater than 30 minutes EXAM Constitutional Vitals: Temp Pulse Resp BP Pulse Ox 96.8 F L 60 16 150/82 92 09/27/21 08:00 09/27/21 08:00 09/27/21 08:00 09/27/21 08:00 09/27/21 08:00 Discharge Data Data Completed and Pending Labs on day of discharge: Labs from last 24 hours 09/27/21 09/27/21 09/26/21 05:21 05:20 06:04 Seg Neutrophils % 61 Lymphocytes % 23 Monocytes % (Manual) 11 Eosinophils % (Manual) 2 Basophils % (Manual) 1 Reactive Lymphocytes 2 Platelet Estimate Decreased A RBC Morphology Normal Sodium 144 Potassium 4.2 Chloride 108 Carbon Dioxide 24 Anion Gap 12.0 BUN 18 Creatinine 1.0 GFR Calculation 72 Glucose 88 Calcium 8.5 L C-Reactive Protein 1.40 H Procalcitonin 0.48 H Ur Strep pneumoniae Ag 09/25/21 11:35 Seg Neutrophils % Lymphocytes % Monocytes % (Manual) Eosinophils % (Manual) Basophils % (Manual) Reactive Lymphocytes Platelet Estimate RBC Morphology Sodium Potassium Chloride Carbon Dioxide Anion Gap BUN Creatinine GFR Calculation Glucose Calcium C-Reactive Protein Procalcitonin Ur Strep pneumoniae Ag Negative Discharge Plan Patient/Caregiver Discharge Instructions Activity: increase activity as tolerated Diet: Regular Diet Activity Restrictions/Additional Instructions: Home oxygen evaluation given likely underlying COPD as well as small PEs Prescriptions: New Eliquis 5 mg Tablet 10 mg PO BID Qty: 90 0RF Rx Instructions: take 10mg daily for 4 more days then take 5mg bid thereafter. cefdinir 300 mg capsule 300 mg PO BID Qty: 5 0RF Continued meclizine 25 mg tablet 25 mg PO TID PRN (Reason: dizziness) Qty: 10 0RF Follow Up Plan Follow up with: Dedrick Paulson MD [Primary Care Provider] - Patient Disposition: Xfer SNF Prognosis: Fair Rehab Potential: Fair I certify that the patient requires SNF services: Yes Overall status at discharge: patient is progressing back to baseline Discharge Orders: Discharge Order (Routine); Ordered 09/27/21 [facility]in [facility]/Pulmonary Embolism Present on Admission: No
[2021-09-27] MEDS: APIXABAN 5 MG TABLET PO SCH (09:28)
[2021-09-27] MEDS: cefTRIAXone 2 GM in DEXTROSE 5% IN WATER 50 ML IV SCH (09:29)
[2021-09-27] MEDS: AZITHROMYCIN 250 MG in DEXTROSE 5% IN WATER 250 ML IV SCH (11:03)
== END 2021-09-27 14:40 | DRG 175 ==
LOC: ED 17:44 → ICU 23:08 → MEDSUR 09-26 09:10
PROVIDERS: ADMIT Internal Medicine; ATTEND Internal Medicine